=== PATIENT | female | born 1985 ===

== ENCOUNTER 2021-01-27 22:30 | Emergency (ER) | payer BC, OTHER ==
--- NOTE | 2021-01-27 23:12 | EDM.PDOC ---
ED HPI GENERAL MEDICAL PROBLEM - General Chief Complaint: QUALITY CHECKER Problem Stated Complaint: VAGINAL BLEEDING Time Seen by Provider: 01/27/21 23:06 - History of Present Illness INITIAL COMMENTS - FREE TEXT/NARRATIVE: 35-year-old female presents to the emergency room with vaginal spotting. Patient thinks she might be she has pretty regular periods and her last period was December 17. The patient is a 2 para 2 with 2 miscarriages. Patient denies any fevers or chills. Really not having a lot of cramping. She has not passed any tissue. He is uncertain of her blood type. She has no other complaints at this time. Lower Abdomen Pain Score (Numeric/FACES): 3 - Related Data Allergies Allergy/AdvReac Type Severity Reaction Status Date / Time No Known Allergies Allergy Verified 01/27/21 23:14 ED ROS GENERAL - Review of Systems Review Of Systems: See Below Constitutional: Reports: No Symptoms HEENT: Reports: No Symptoms Respiratory: Reports: No Symptoms Cardiovascular: Reports: No Symptoms Endocrine: Reports: No Symptoms GI/Abdominal: Reports: No Symptoms : Reports: No Symptoms Musculoskeletal: Reports: No Symptoms Skin: Reports: No Symptoms ED EXAM, GENERAL - Physical Exam Exam: See Below Exam Limited By: No Limitations General Appearance: Alert, No Apparent Distress Head: Atraumatic, Normocephalic Neck: Normal Inspection, Supple, Non-Tender, Full Range of Motion. No: Lymphadenopathy (L), Lymphadenopathy (R) Respiratory/Chest: No Respiratory Distress, Lungs Clear, Normal Breath Sounds Cardiovascular: Normal Peripheral Pulses, Regular Rate, Rhythm, No Edema GI/Abdominal: Normal Bowel Sounds, Soft, No Mass, Other (Mild suprapubic discomfort). No: Guarding, Rigid, Rebound (Female) Exam: Normal External Exam, Normal Speculum Exam, Other (Of excess closed small amount of mucus minimal debris that was perhaps old blood). No: Adnexal Mass, Cervix Motion Tenderness Back Exam: Normal Inspection. No: CVA Tenderness (L), CVA Tenderness (R) Course - Vital Signs Last Recorded V/S: Last Vital Signs Temp 36.4 C 01/27/21 22:54 Pulse 75 01/27/21 22:54 Resp 18 01/27/21 22:54 BP 116/79 01/27/21 22:54 Pulse Ox 95 01/27/21 22:54 - Orders/Labs/Meds Orders: Active Orders 24 hr Category Date Time Status Pelvic Exam, Set Up [RC] ASDIRECTED Care 01/28/21 01:30 Active OB Transvaginal [US] Stat Exams 01/28/21 01:36 Taken CULTURE URINE [MREF] Stat Lab 01/27/21 23:24 Received PATIENT RETYPE [BBK] Routine Lab 01/28/21 00:47 Ordered Labs: Laboratory Tests 01/27/21 01/27/21 01/27/21 Range/Units 11:32 11:39 11:39 WBC 11.18 H (3.98-10.04) K/mm3 RBC 3.75 L (3.98-5.22) M/mm3 Hgb 11.8 (11.2-15.7) gm/dl Hct 35.3 (34.1-44.9) % MCV 94.1 (79.4-94.8) fl MCH 31.5 (25.6-32.2) pg MCHC 33.4 (32.2-35.5) g/dl RDW Std Deviation 41.9 (36.4-46.3) fL Plt Count 256 (182-369) K/mm3 MPV 9.8 (9.4-12.3) fl Neut % (Auto) 52.9 (34.0-71.1) % Lymph % (Auto) 37.4 (19.3-51.7) % Bureau % (Auto) 7.0 (4.7-12.5) % Eos % (Auto) 2.1 (0.7-5.8) Baso % (Auto) 0.6 (0.1-1.2) % Neut # (Auto) 5.92 (1.56-6.13) K/mm3 Lymph # (Auto) 4.18 H (1.18-3.74) K/mm3 Bureau # (Auto) 0.78 H (0.24-0.36) K/mm3 Eos # (Auto) 0.23 (0.04-0.36) K/mm3 Baso # (Auto) 0.07 (0.01-0.08) K/mm3 Sodium 139 (136-145) mEq/L Potassium 3.7 (3.5-5.1) mEq/L Chloride 103 (98-107) mEq/L Carbon Dioxide 27 (21-32) mEq/L Anion Gap 12.7 (5-15) BUN 20 H (7-18) mg/dL Creatinine 0.8 (0.55-1.02) mg/dL Est Cr Clr Drug Dosing 96.36 mL/min Estimated GFR (MDRD) > 60 (>60) mL/min BUN/Creatinine Ratio 25.0 H (14-18) Glucose 91 (70-99) mg/dL Calcium 8.3 L (8.5-10.1) mg/dL Total Bilirubin 0.2 (0.2-1.0) mg/dL AST 16 (15-37) U/L ALT 24 (14-59) U/L Alkaline Phosphatase 54 (46-116) U/L Total Protein 6.6 (6.4-8.2) g/dl Albumin 3.3 L (3.4-5.0) g/dl Globulin 3.3 gm/dL Albumin/Globulin Ratio 1.0 (1-2) HCG, Quant 21679.0 mIU/mL Urine Color (Yellow) Urine Appearance (Clear) Urine pH (5.0-8.0) Ur Specific Echo (1.005-1.030) Urine Protein (Negative) Urine Glucose (UA) (Negative) Urine Ketones (Negative) Urine Occult Blood (Negative) Urine Nitrite (Negative) Urine Bilirubin (Negative) Urine Urobilinogen (0.2-1.0) Ur Leukocyte Esterase (Negative) Urine RBC (0-5) /hpf Urine WBC (0-5) /hpf Ur Squamous Epith Cells (0-5) /hpf Urine Bacteria (FEW) /hpf Urine Mucus (FEW) /hpf Blood Type Gel Antibody Screen 01/27/21 01/27/21 Range/Units 11:39 23:24 WBC (3.98-10.04) K/mm3 RBC (3.98-5.22) M/mm3 Hgb (11.2-15.7) gm/dl Hct (34.1-44.9) % MCV (79.4-94.8) fl MCH (25.6-32.2) pg MCHC (32.2-35.5) g/dl RDW Std Deviation (36.4-46.3) fL Plt Count (182-369) K/mm3 MPV (9.4-12.3) fl Neut % (Auto) (34.0-71.1) % Lymph % (Auto) (19.3-51.7) % Bureau % (Auto) (4.7-12.5) % Eos % (Auto) (0.7-5.8) Baso % (Auto) (0.1-1.2) % Neut # (Auto) (1.56-6.13) K/mm3 Lymph # (Auto) (1.18-3.74) K/mm3 Bureau # (Auto) (0.24-0.36) K/mm3 Eos # (Auto) (0.04-0.36) K/mm3 Baso # (Auto) (0.01-0.08) K/mm3 Sodium (136-145) mEq/L Potassium (3.5-5.1) mEq/L Chloride (98-107) mEq/L Carbon Dioxide (21-32) mEq/L Anion Gap (5-15) BUN (7-18) mg/dL Creatinine (0.55-1.02) mg/dL Est Cr Clr Drug Dosing mL/min Estimated GFR (MDRD) (>60) mL/min BUN/Creatinine Ratio (14-18) Glucose (70-99) mg/dL Calcium (8.5-10.1) mg/dL Total Bilirubin (0.2-1.0) mg/dL AST (15-37) U/L ALT (14-59) U/L Alkaline Phosphatase (46-116) U/L Total Protein (6.4-8.2) g/dl Albumin (3.4-5.0) g/dl Globulin gm/dL Albumin/Globulin Ratio (1-2) HCG, Quant mIU/mL Urine Color Yellow (Yellow) Urine Appearance Clear (Clear) Urine pH 7.0 (5.0-8.0) Ur Specific Echo 1.025 (1.005-1.030) Urine Protein Negative (Negative) Urine Glucose (UA) Negative (Negative) Urine Ketones Negative (Negative) Urine Occult Blood 1+ H (Negative) Urine Nitrite Negative (Negative) Urine Bilirubin Negative (Negative) Urine Urobilinogen 0.2 (0.2-1.0) Ur Leukocyte Esterase Trace H (Negative) Urine RBC 5-10 H (0-5) /hpf Urine WBC 5-10 H (0-5) /hpf Ur Squamous Epith Cells 0-5 (0-5) /hpf Urine Bacteria Few (FEW) /hpf Urine Mucus Few (FEW) /hpf Blood Type O POSITIVE Gel Antibody Screen Negative - Re-Assessments/Exams Free Text/Narrative Re-Assessment/Exam: 01/28/21 01:35 Just got the test back and it is positive with a quantitative at almost 28,000. With a left-sided discomfort we will check an ultrasound to exclude an ectopic 01/28/21 03:23 Patient's ultrasound shows a single live intrauterine gestation of approximately 5 weeks 5 days with good activity. Departure - Departure Time of Disposition: 03:23 Disposition: Home, Self-Care 01 Clinical Impression: Threatened miscarriage in early - Discharge Information Instructions: Threatened Miscarriage, [id number] Referrals: PCP,None [Primary Care Provider] - Forms: ED Department Discharge Additional Instructions: Return to the emergency room with any questions problems or worsening symptoms. On Monday follow-up at the women's clinic here at the hospital call later today for an appointment [phone]. No strenuous activity. Or heavy lifting. Get plenty of rest. Sepsis Event Note (ED) - Evaluation Sepsis Screening Result: No Definite Risk - Focused Exam Vital Signs: Vital Signs Temp Pulse Resp BP Pulse Ox 01/27/21 22:54 36.4 C 75 18 116/79 95 - My Orders Last 24 Hours: My Active Orders 01/27/21 23:24 CULTURE URINE [MREF] Stat 01/28/21 00:47 PATIENT RETYPE [BBK] Routine 01/28/21 01:30 Pelvic Exam, Set Up [RC] ASDIRECTED 01/28/21 01:36 OB Transvaginal [US] Stat - Assessment/Plan Last 24 Hours: My Active Orders 01/27/21 23:24 CULTURE URINE [MREF] Stat 01/28/21 00:47 PATIENT RETYPE [BBK] Routine 01/28/21 01:30 Pelvic Exam, Set Up [RC] ASDIRECTED 01/28/21 01:36 OB Transvaginal [US] Stat
--- NOTE | 2021-01-28 08:17 | US ---
First trimester obstetrical ultrasound: Multiple real-time images were obtained transvaginally. Comparison: No prior study for current is available. Dates: Current ultrasound: MARIO 09/24/21, gestational age 5 weeks 6 days Single intrauterine gestational sac is seen. Yolk sac and small pole are seen. No subchorionic hemorrhage is seen. Minimal amount of free fluid is seen within the cul-de-sac which is felt to be physiologic. Small hypoechoic area is noted within the left maternal ovary most likely representing a small collapsing hemorrhagic cyst measuring 2.3 cm. Right maternal ovary appears normal. Measurements: Harts-rump length: 0.25 cm - 5 weeks 6 days Heart rate: 106 bpm Impression: 1. Single intrauterine gestation. Dates as noted above. 2. Heart activity seen. 3. Other findings believed to be incidental as noted above. Diagnostic code #2 I agree with preliminary report from [facility], finalized on 01/28/21, 4:18 AM CDT, code 1
== END 2021-01-28 03:27 | disposition home or self-care (01) ==
LOC: JD.ED 22:30
DX: O20.0 Threatened abortion (principal); Z3A.01 Less than 8 weeks gestation of pregnancy
CPT/HCPCS: 36415; 76817; 76817-26; 80053; 81001; 84702; 85025; 86850; 86900; 86901; 87086; 87088; 99283; 99284-25